=== PATIENT | female | born 1965 | race Caucasian/White ===

== ENCOUNTER 2017-04-08 20:55 | Emergency (ER) | payer BC ==
[~2017-04-08] VITALS: Ht 167.6 cm; Wt 69.4 kg
[~2017-04-08 20:55] MED LIST: IRON PO; LEVO112T2 PO; LORA-741 PO; TYL325X PO
[2017-04-08 20:57] VITALS: Ht 167.6 cm; Wt 69.4 kg
[2017-04-08] MEDS ORDERED: OMEP20CA9 PO (21:17)
[2017-04-08] MEDS ORDERED: SYN88 PO (21:17)
[2017-04-08] MEDS ORDERED: ESTCR PV (21:17)
[2017-04-08] MEDS ORDERED: ACET325T96 PO (21:19)
[2017-04-08] MEDS ORDERED: CLR10 PO (21:21)
[2017-04-08] MEDS ORDERED: ACETAMINOPHEN 500 MG TAB PO STA (21:34)
[2017-04-08] MEDS ORDERED: CEFTRIAXONE SOD INJ 2,000 MG in DEXTROSE 5% 50ML 50 ML IV STA (21:34)
[2017-04-08] MEDS ORDERED: DiphenhydrAMINE HCL 50 MG/ML VIAL IV STA (21:34)
[2017-04-08] MEDS ORDERED: METOCLOPRAMIDE HCL INJ 5 MG/ML 2 ML VIAL IV STA (21:34)
[2017-04-08] MEDS ORDERED: SODIUM CHLORIDE 0.9% 1000ML 1,000 ML IV STA ×2 (21:34)
[2017-04-08] MEDS ORDERED: DEXAMETHASONE SOD INJ 10 MG/ML VIAL IV ONE (21:45)
--- NOTE | 2017-04-08 21:56 | DIAGNOSTIC IMAGING REPORT ---
CHEST ONE VIEW PORTABLE CLINICAL HISTORY: Sepsis. COMPARISON STUDY: Chest radiograph December 30, 2013. FINDINGS: Lung volumes are normal. Lungs are clear. There is no pneumothorax or pleural effusion. Cardiac size is normal. Mediastinal contours are normal. There is no evidence of pulmonary edema. IMPRESSION: No acute cardiopulmonary findings. Electronically signed by: Rambo Jefferson M.D. 04/08/2017 9:55 PM Dictated Date/Time: 04/08/2017 9:54 PM
[2017-04-08 22:18] LABS: BASO % 0.8 %; BASO ABS # 0.05 K/uL (0-0.2); COMPLETE YES; EOS % 1.7 %; HEMATOCRIT 38.9 % (37-47); IG% 0.3 %; LYMPH % 12.5 %; LYMPH ABS # 0.82 K/uL (1.2-3.4); MEAN CELL VOLUME 86.3 fL (80-100); MEAN CORPUSCULAR HEMOGLOBIN 31.3 pg (25-34); MEAN CORPUSCULAR HGB CONC 36.2 g/dl (32-36); MONO % 10.4 %; NEUT % 74.3 %; PLATELET COUNT 164 K/uL (130-400); RED BLOOD COUNT 4.51 M/uL (4.2-5.4); WHITE BLOOD COUNT 6.57 K/uL (4.8-10.8)
[2017-04-08 22:28] LABS: INR 1.1 (0.9-1.1); PARTIAL THROMBOPLASTIN RATIO 1.1; PROTHROMBIN TIME (PATIENT) 11.4 SECONDS (9.0-12.0)
[2017-04-08 22:35] LABS: ALT/SGPT 37 U/L (12-78); BLOOD UREA NITROGEN 11 mg/dl (7-18); BUN/CREATININE RATIO 13.4 (10-20); CARBON DIOXIDE 26 mmol/L (21-32); CHLORIDE 105 mmol/L (98-107); GLUCOSE 104 mg/dl (70-99); POTASSIUM 3.6 mmol/L (3.5-5.1); SODIUM 139 mmol/L (136-145)
[2017-04-08 22:40] LABS: ALB/GLOB RATIO 0.9 (0.9-2); ALKALINE PHOSPHATASE 75 U/L (45-117); AST/SGOT 32 U/L (15-37)
[2017-04-08 22:48] LABS: URINE APPEARANCE CLEAR (CLEAR); URINE BILIRUBIN NEG (NEG); URINE COLOR YELLOW; URINE EPITHELIAL CELL AUTO >30 /lpf (0-5); URINE NITRITE NEG (NEG); URINE PH 7.5 (4.5-7.5); URINE SPECIFIC GRAVITY 1.022 (1.000-1.030); UROBILINOGEN NEG (NEG); ZZUR CULT IF INDIC CLEAN CATCH NO
[2017-04-08 22:52] LABS: CALCIUM 8.9 mg/dl (8.5-10.1)
[2017-04-08 22:54] LABS: MANUAL MICROSCOPIC REQUIRED? NO; REVIEW REQ? NO
[2017-04-08 23:40] LABS: LYME DISEASE AB IGG NEG (NEG); LYME DISEASE AB IGM NEG (NEG)
[2017-04-08 23:45] VITALS: TEMP 37.2
[2017-04-09 00:41] LABS: CSF CHEMISTRY TUBE # 2
[2017-04-09 00:44] LABS: CSF TOTAL PROTEIN 23.8 mg/dl (15.0-45.0)
[2017-04-09 01:14] LABS: CSF APPEARANCE CLEAR; CSF COLOR COLORLESS; CSF XANTHOCHROMIC NO XANTHOCHROMIA
[2017-04-09 01:15] LABS: CSF APPEARANCE CLEAR; CSF COLOR COLORLESS; CSF XANTHOCHROMIC NO XANTHOCHROMIA
[2017-04-09 02:12] VITALS: BP 118/72; PULSE 78; O2SAT 98
--- NOTE | 2017-04-09 05:02 | EMERGENCY ROOM VISIT NOTE ---
History First contact with patient: 21:20 Chief Complaint: BITE Stated Complaint: TICK BITE,CHILLS,STIFF NEC,ACHES,NAUSEA History of Present Illness The patient is a 52 year old female who presents to the Emergency Room with complaints of fever, chills, myalgias, arthralgias, headache, neck stiffness, nausea for the past 2 days. Patient had multiple tick bites in the past. No bull's-eye rash. Patient denies chest pain, dyspnea, abdominal pain, vomiting, diarrhea, sore throat. She is tolerating by mouth fluids and food. Patient believes she has Lyme's disease. Review of Systems See HPI for pertinent positives & negatives. A total of 10 systems reviewed and were otherwise negative. Past Medical/Surgical History Medical Problems: (1) Anemia (2) Anxiety (3) Uterine fibroid Family History No significant family history Social History Smoking Status: Never Smoker Marital Status: Housing Status: lives alone Occupation Status: employed Current/Historical Medications Scheduled Acetaminophen Tab (Tylenol), 650 MG PO PRN UD Estradiol Vaginal (Estrace), 1 APPLN PV UD Levothyroxine Sodium (Synthroid), 88 MCG PO DAILY Scheduled PRN Loratadine (Claritin), 10 MG PO DAILY PRN for ALLERGIC REACTION Lorazepam (Ativan), 0.5 MG PO TID PRN for Anxiety Allergies Coded Allergies: Iron (Verified Allergy, Severe, HIVES, 07/04/14) ONLY IV IRON Physical Exam Vital Signs Date Time Temp Pulse Resp B/P (MAP) Pulse Ox O2 Delivery O2 Flow Rate FiO2 04/09/17 02:12 78 16 118/72 98 04/09/17 00:52 79 16 119/73 99 Room Air 04/08/17 23:45 37.2 87 16 135/85 99 Room Air 04/08/17 22:00 Room Air 04/08/17 20:57 38.4 115 20 157/72 97 Room Air Pain Rating (0-10): 0 Physical Exam VITALS: Vitals are noted on the nurse's note and reviewed by myself. Vital signs febrile. GENERAL: Pleasant female mildly ill-appearing, in no acute distress, nondiaphoretic, well-developed well-nourished. SKIN: The skin was without rashes, erythema, edema, or bruising. There is no tenting of the skin. Capillary reflex less than 2 seconds. HEAD: Normocephalic atraumatic. EARS: External auditory canals clear, tympanic membranes pearly payne without erythema or effusion bilaterally. EYES: Pupils equal round and reactive to light and accommodation. Conjunctivae without injection, sclerae without icterus. Extraocular movements intact. NOSE: Patent, turbinates without inflammation or discharge. No sinus tenderness. MOUTH: Mucous membranes moist. Pharynx without erythema or exudate. Uvula midline. Airway patent. Tongue does not deviate. NECK: Mild neck discomfort with chin to chest. No lymphadenopathy. No thyromegaly. Cervical spine is nontender. No JVD. HEART: Regular rate and rhythm without murmurs gallops or rubs. LUNGS: Clear to auscultation bilaterally without wheezes, rales or rhonchi. No dullness to percussion. No retractions or accessory muscle use. ABDOMEN: Positive bowel sounds x 4. Normal tympanic percussion. Soft, nontender, without masses or organomegaly. Spencer sign negative. No guarding or rebound tenderness. MUSCULOSKELETAL: No muscle atrophy, erythema, or edema noted. NEURO: Patient was alert and oriented to person place and time. Normal sensation to light and sharp touch. No focal neurological deficits. Medical Decision & Procedures Laboratory Results 04/08/17 22:05 Red Blood Count 4.51, Mean Corpuscular Volume 86.3, Mean Corpuscular Hemoglobin 31.3, Mean Corpuscular Hemoglobin Concent 36.2, Mean Platelet Volume 10.0, Neutrophils (%) (Auto) 74.3, Lymphocytes (%) (Auto) 12.5, Monocytes (%) (Auto) 10.4, Eosinophils (%) (Auto) 1.7, Basophils (%) (Auto) 0.8, Neutrophils # (Auto ) 4.89, Lymphocytes # (Auto) 0.82, Monocytes # (Auto) 0.68, Eosinophils # (Auto ) 0.11, Basophils # (Auto) 0.05 04/08/17 22:05 Test 04/08/17 22:05 04/08/17 22:16 04/08/17 22:30 04/09/17 00:05 White Blood Count 6.57 K/uL (4.8-10.8) Red Blood Count 4.51 M/uL (4.2-5.4) Hemoglobin 14.1 g/dL (12.0-16.0) Hematocrit 38.9 % (37-47) Mean Corpuscular Volume 86.3 fL (80-100) Mean Corpuscular Hemoglobin 31.3 pg (25-34) Mean Corpuscular Hemoglobin Concent 36.2 g/dl (32-36) Platelet Count 164 K/uL (130-400) Mean Platelet Volume 10.0 fL (7.4-10.4) Neutrophils (%) (Auto) 74.3 % Lymphocytes (%) (Auto) 12.5 % Monocytes (%) (Auto) 10.4 % Eosinophils (%) (Auto) 1.7 % Basophils (%) (Auto) 0.8 % Neutrophils # (Auto) 4.89 K/uL (1.4-6.5) Lymphocytes # (Auto) 0.82 K/uL (1.2-3.4) Monocytes # (Auto) 0.68 K/uL (0.11-0.59) Eosinophils # (Auto) 0.11 K/uL (0-0.5) Basophils # (Auto) 0.05 K/uL (0-0.2) RDW Standard Deviation 40.7 fL (36.4-46.3) RDW Coefficient of Variation 12.7 % (11.5-14.5) Immature Granulocyte % (Auto) 0.3 % Immature Granulocyte # (Auto) 0.02 K/uL (0.00-0.02) Prothrombin Time 11.4 SECONDS (9.0-12.0) Prothromb Time International Ratio 1.1 (0.9-1.1) Activated Partial Thromboplast Time 29.2 SECONDS (21.0-31.0) Partial Thromboplastin Ratio 1.1 Anion Gap 8.0 mmol/L (3-11) Est Creatinine Clear Calc Drug Dose 78.7 ml/min Estimated GFR () 99.6 Estimated GFR (Non- 86.0 BUN/Creatinine Ratio 13.4 (10-20) Calcium Level 8.9 mg/dl (8.5-10.1) Total Bilirubin 0.5 mg/dl (0.2-1) Aspartate Amino Transf (AST/SGOT) 32 U/L (15-37) Alanine Aminotransferase (ALT/SGPT) 37 U/L (12-78) Alkaline Phosphatase 75 U/L (45-117) Troponin I < 0.015 ng/ml (0-0.045) Total Protein 7.6 gm/dl (6.4-8.2) Albumin 3.6 gm/dl (3.4-5.0) Globulin 4.0 gm/dl (2.5-4.0) Albumin/Globulin Ratio 0.9 (0.9-2) Lyme Disease IgG Antibody NEG (NEG) Lyme Disease IgM Antibody NEG (NEG) Bedside Lactic Acid Venous 1.06 mmol/L (0.90-1.70) Urine Color YELLOW Urine Appearance CLEAR (CLEAR) Urine pH 7.5 (4.5-7.5) Urine Specific [employer] 1.022 (1.000-1.030) Urine Protein NEG (NEG) Urine Glucose (UA) NEG (NEG) Urine Ketones NEG (NEG) Urine Occult Blood TRACE (NEG) Urine Nitrite NEG (NEG) Urine Bilirubin NEG (NEG) Urine Urobilinogen NEG (NEG) Urine Leukocyte Esterase NEG (NEG) Urine WBC (Auto) 1-5 /hpf (0-5) Urine RBC (Auto) 5-10 /hpf (0-4) Urine Hyaline Casts (Auto) 1-5 /lpf (0-5) Urine Epithelial Cells (Auto) >30 /lpf (0-5) Urine Bacteria (Auto) NEG (NEG) CSF Color COLORLESS CSF Appearance CLEAR CSF WBC 0 /uL (0-5) CSF RBC 406 /uL (0) CSF Xanthrochromic NO XANTHOCHROMIA CSF Cell Count Tube # 1 CSF Chemistry Tube # 2 CSF Glucose 63 mg/dl (40-70) CSF Total Protein 23.8 mg/dl (15.0-45.0) Medications Administered Medications (Trade) Dose Ordered Sig/Tami Route Start Time Stop Time Status Last Admin Dose Admin Ceftriaxone Sodium 2000 mg/ Dextrose 70 ml @ 100 mls/hr ONE STAT IV 04/08/17 21:34 04/08/17 22:15 DC 04/08/17 22:05 100 MLS/HR Dexamethasone Sodium Phosphate (Decadron Inj) 10 mg NOW ONCE IV 04/08/17 21:45 04/08/17 21:46 DC 04/08/17 22:05 10 MG Sodium Chloride 1,000 ml @ 999 mls/hr Q1H1M STAT IV 04/08/17 21:34 04/08/17 22:34 DC 04/08/17 22:06 999 MLS/HR Sodium Chloride 1,000 ml @ 125 mls/hr Q8H STAT IV 04/08/17 21:34 04/09/17 02:55 DC 04/09/17 00:21 125 MLS/HR Acetaminophen (Tylenol Tab) 1,000 mg NOW STAT PO 04/08/17 21:34 04/08/17 21:41 DC 04/08/17 22:04 1,000 MG Metoclopramide HCl (Reglan Inj) 10 mg NOW STAT IV 04/08/17 21:34 04/08/17 21:41 DC 04/08/17 22:04 10 MG Diphenhydramine HCl (Benadryl Inj) 25 mg NOW STAT IV 04/08/17 21:34 04/08/17 21:41 DC 04/08/17 22:04 25 MG Procedure Lumbar Puncture Indication: r/o meningitis. Verbal consent was obtained after the risks and benefits were explained, including but not limited to headache, bleeding/clotting, scarring, infection, pain, and bone/joint/nerve damage. At this time, the risks of the procedure are less than the risks of NOT performing the procedure. A time out was taken and the correct patient and site identified. The patient was placed in the sitting position and the back was prepped with betadine and draped in the standard fashion. The L3 intervertebral space was identified, anesthetized locally with 1 % lidocaine without epinephrine, and the spinal needle was inserted through the skin with the bevel parallel to the dural fibers. The 22-gauge needle was carefully advanced into the lumbar cistern and 4 tubes of clear CSF was obtained. The stylet was replaced and the needle was removed. A bandaid was placed and the patient was placed in the supine position. The patient tolerated the procedure well and there were no complications. ED Course Prior records/ancillary studies reviewed. Triage Nursing notes reviewed. Additional history obtained from family. The patient's history was concerning for fever. Differential diagnosis: Etiologies such as viral syndrome, otitis, pharyngitis, pneumonia, influenza, meningitis, urinary tract infection, sepsis, bacteremia, as well as others were entertained. Physical examination: As above ER treatment provided: Rocephin, Decadron, IV fluids On reassessment the patient felt better. Diagnostics interpreted by me: The labs revealed guidelines. CSF with no signs of meningitis. Negative Gram stain Imaging studies: Head CT negative for intracranial bleed per radiology Chest x-ray without pneumonia per radiology This appears to be consistent with fever and headache most likely viral in etiology. No signs of meningitis on laboratory workup. Patient felt much better after being medicated as above. She is tolerating fluids. She was counseled on Lumbar Puncture and on Spinal Headaches. She Is Advised to Follow- Up Family Care in A Few Days or Here in the ER Sooner for High Fevers, Lethargy , Neck Stiffness, Worsening Signs or Symptoms or As Needed. Patient Was Neurovascularly and Neurologically Intact. She Was Well-Appearing.. By the evaluation outlined above emergent etiologies such as otitis, pharyngitis, pneumonia, meningitis, urinary tract infection, sepsis, bacteremia, as well as others were deemed relatively unlikely. The pt informed about the findings as listed above. All questions were answered and pleased with the treatment. Return instructions were outlined and the patient was discharged in stable condition. Referral: The patient was referred back to their primary care physician for follow-up in 2 to 3 days for a recheck of the current condition. Case reviewed with my attending Medical Decision As above Impression Primary Impression: Fever Additional Impression: Headache Departure Information Dispostion Home / Self-Care Condition GOOD Referrals Carole Nam M.D. (PCP) Forms HOME CARE DOCUMENTATION FORM, Work Instructions, Return To Work: 2 days IMPORTANT VISIT INFORMATION Patient Instructions Lumbar Puncture, Fever - [facility] Additional Instructions If you develop a headache when you sit up and it goes away when you lay down that does not go away with Tylenol or Motrin within the next 72 hours you can come here for a blood patch. Acetaminophen(Tylenol) may be used for fever or pain. Use 1000mg every six hours as needed. Avoid using more than 3000mg in a 24 hour period. (AND/OR) Ibuprofen(Motrin, Advil) may be used for fever or pain. Use 600mg every six hours as needed. Take with food. Avoid using more than 2400mg in a 24 hour period. Do not use 2400mg per day for more than three consecutive days without physician direction. Prolonged inappropriate use can lead to stomach upset or ulcers. Afrin nasal spray: 2-3 sprays to each nostril twice daily as needed for congestion. Do not use for more than 3-4 days because it can lead to worsening rebound congestion. Pseudoephedrine(Sudaphed): 30-60mg every 6 hours as needed for nasal congestion. Do not take this with other stimulant products or supplements. Rest and drink plenty of fluids. Controlling your fever with Tylenol and Ibuprofen as above will make you feel better. Wash your hands after nose blowing, sneezing, or coughing. Most germs are spread through contact, therefore improper hygiene may result in your close contacts and loved ones becoming ill just like you. Continue current medications. Return to the ER for severe headache, neck stiffness, chest pain, difficulty breathing, fevers, vomiting, worsening of your condition, or as needed. Follow up with your primary physician this week for a recheck of your current condition. Work Instructions Return To Work: 2 days Problem Qualifiers Primary Impression: Fever Fever type: unspecified Qualified Codes: R50.9 - Fever, unspecified Additional Impression: Headache Headache type: unspecified Headache chronicity pattern: acute headache Intractability: not intractable Qualified Codes: R51 - Headache
--- NOTE | 2017-04-09 06:43 | DIAGNOSTIC IMAGING REPORT ---
CT HEAD WITHOUT CONTRAST (CT) CLINICAL HISTORY: Headache, fever, stiff neck, tic bite. COMPARISON STUDY: No previous studies for comparison. TECHNIQUE: Axial CT of the brain is performed from the vertex to the skull base. IV contrast was not administered for this examination. CT DOSE: 537.48 mGy.cm FINDINGS: No intra or extra-axial mass lesions are visualized. There is no CT evidence of acute cortical infarction. There is no evidence of midline shift. There is no acute hemorrhage. No calvarial fractures are visualized. There is no evidence of pathologic ventricular dilatation. There is no evidence of acute sinusitis IMPRESSION: Normal noncontrast head CT for age Electronically signed by: Dwight Reyna M.D. 04/09/2017 6:42 AM Dictated Date/Time: 04/09/2017 6:41 AM
[2017-04-09] MEDS ORDERED: DXY100 PO (21:24)
[2017-04-12 12:53] LABS: LYME DNA PCR CSF OR SYNOVIAL Not detected (Not Detected); LYME DNA SOURCE CSF
== END 2017-04-09 02:00 | disposition home or self-care (01) ==
LOC: C.EDB 20:56 → C.EDC 04-09 02:00
DX: R50.9 Fever, unspecified (principal); R51 Headache; F41.9 Anxiety disorder, unspecified; Z86.018 Personal history of other benign neoplasm; Z79.899 Other long term (current) drug therapy; Z88.8 Allergy status to other drugs, medicaments and biological substances

== ENCOUNTER 2017-04-09 18:55 | Emergency (ER) | payer BC ==
[~2017-04-09] VITALS: Ht 167.6 cm; Wt 67.8 kg
[~2017-04-09 18:55] MED LIST changes: +ACET325T96 PO; +CLR10 PO; +ESTCR PV; +OMEP20CA9 PO; +SYN88 PO
[2017-04-09 18:58] VITALS: TEMP 36.7; Ht 167.6 cm; Wt 67.8 kg
[2017-04-09] MEDS ORDERED: HYDROmorphone INJ 0.5 MG/0.5 ML SYR IV STA (19:31)
[2017-04-09] MEDS ORDERED: ONDANSETRON INJ 2 MG/ML 2 ML VIAL IV STA (19:31)
[2017-04-09 20:14] LABS: BASO % 0.3 %; BASO ABS # 0.04 K/uL (0-0.2); COMPLETE YES; EOS % 0.1 %; HEMATOCRIT 38.5 % (37-47); IG% 0.2 %; LYMPH % 8.1 %; LYMPH ABS # 1.12 K/uL (1.2-3.4); MEAN CELL VOLUME 87.1 fL (80-100); MEAN CORPUSCULAR HEMOGLOBIN 31.4 pg (25-34); MEAN CORPUSCULAR HGB CONC 36.1 g/dl (32-36); MEAN PLATELET VOLUME 10.2 fL (7.4-10.4); MONO % 11.3 %; PLATELET COUNT 195 K/uL (130-400); RED BLOOD COUNT 4.42 M/uL (4.2-5.4); WHITE BLOOD COUNT 13.85 K/uL (4.8-10.8)
[2017-04-09 20:17] LABS: URINE APPEARANCE CLEAR (CLEAR); URINE BILIRUBIN NEG (NEG); URINE COLOR YELLOW; URINE NITRITE NEG (NEG); URINE PH 7.5 (4.5-7.5); UROBILINOGEN NEG (NEG)
[2017-04-09 20:32] LABS: BUN/CREATININE RATIO 13.8 (10-20); C-REACTIVE PROTEIN 10.2 mg/dl (0-0.29); CALCIUM 8.3 mg/dl (8.5-10.1); CREATININE 0.65 mg/dl (0.60-1.20); POTASSIUM 3.6 mmol/L (3.5-5.1)
[2017-04-09 20:46] LABS: MANUAL MICROSCOPIC REQUIRED? NO; REVIEW REQ? NO
[2017-04-09] MEDS ORDERED: DOXYCYCLINE HYCLATE 100 MG CAP PO ONE (21:15)
[2017-04-09] MEDS ORDERED: DXY100 PO (21:24)
[2017-04-09] MEDS ORDERED: EMPTY 8 DRAM VIAL ONE (21:31)
[2017-04-09 21:39] VITALS: BP 141/82; PULSE 74; O2SAT 100
--- NOTE | 2017-04-10 00:55 | EMERGENCY ROOM VISIT NOTE ---
History Report prepared by Jenn: Tino Subramanian Under the Supervision of: Dr. Luis Lubin M.D. First contact with patient: 19:10 Chief Complaint: OTHER COMPLAINT Stated Complaint: BACK ACHE,HEADACHE,SPINAL TAP YESTERDAY History of Present Illness The patient is a 52 year old female who presents to the Emergency Room with complaints of worsening back pains starting this morning. She reports her discomfort as a 5/10 in severity. The patient states that she went into the clinic earlier this week due to tick bites on her arm, but denies any medication was given to her. She states that she was taking Prilosec two weeks ago for pain but had to come off of it due to nausea.The patient states that she was experiencing generalized aching two days ago and intermittent fevers and chills. She reports that she came to the ED yesterday for her aches, fevers , and chills. She reports that she had a Spinal tap done and was given an antibiotic for meningitis. The patient states that she went to bed last night with extra pillows because of her acid reflux that began a month ago and woke up with back pain and a headache. She reports that throughout the day she felt the pain radiate to her shoulder blades. The patient states that she has been tensing up lately and her neck has been stiff when she moves it side to side. She reports that her headache resolved, but she has been experience jaw pain. The patient admits that she took Tylenol at 0700 and 1330 and states that it helped relieve her pain. She reports that her pain returned later this evening. The patient states that the only position she is comfortable in currently is laying on her right side with her knees to her chest. She admits an allergy to iron and cats but denies any other allergies. The patient denies LOC, diaphoresis, visual changes, chest pain, breathing difficulties, nausea, vomiting, abdominal pain, melena, hematochezia, urinary symptoms, numbness, weakness, lymphadenopathy, rash, or other complaints. Source of History: patient Onset: this morning Position: back Symptom Intensity: 5/10 Timing: worsening Modifying Factors (Relieving): rest, tylenol Associated Symptoms: + fevers, + chills, + headache, + neck pain Review of Systems See HPI for pertinent positives and negatives. A total of ten systems were reviewed and were otherwise negative. Past Medical & Surgical Medical Problems: (1) Anemia (2) Anxiety (3) Uterine fibroid Family History No significant family history Social History Smoking Status: Never Smoker Smokeless Tobacco Use: No Alcohol Use: none Drug Use: none Marital Status: Housing Status: lives alone Occupation Status: employed Current/Historical Medications Scheduled Doxycycline Hyclate (Doxycycline Hyclate), 100 MG PO BID Estradiol Vaginal (Estrace), 1 APPLN PV UD Levothyroxine Sodium (Synthroid), 88 MCG PO DAILY Scheduled PRN Loratadine (Claritin), 10 MG PO DAILY PRN for ALLERGIES Lorazepam (Ativan), 0.5 MG PO TID PRN for Anxiety Allergies Coded Allergies: Iron (Verified Allergy, Severe, HIVES, 07/04/14) ONLY IV IRON Physical Exam Vital Signs Date Time Temp Pulse Resp B/P (MAP) Pulse Ox O2 Delivery O2 Flow Rate FiO2 04/09/17 21:39 74 20 141/82 100 04/09/17 20:56 72 20 137/80 100 Room Air 04/09/17 20:10 70 16 144/85 100 Room Air 04/09/17 18:58 36.7 97 18 138/95 100 Room Air Physical Exam GENERAL: Awake, alert, well-appearing, in no distress HENT: Normocephalic, atraumatic. Oropharynx unremarkable. EYES: Normal conjunctiva. Sclera non-icteric. NECK: Supple. No nuchal rigidity. FROM. No JVD. RESPIRATORY: Clear to auscultation. CARDIAC: Regular rate, normal rhythm. Extremities warm and well perfused. Pulses equal. ABDOMEN: Soft, non-distended. No tenderness to palpation. No rebound or guarding. No masses. RECTAL: Deferred. MUSCULOSKELETAL: Lumbar puncture is normal without infection. Chest examination reveals no tenderness. The back is symmetrical on inspection without obvious abnormality. There is no CVA tenderness to palpation. No joint edema. LOWER EXTREMITIES: Calves are equal size bilaterally and non-tender. No edema. No discoloration. NEURO: Normal sensorium. No sensory or motor deficits noted. Negative straight leg raise. No saddle anesthesia. SKIN: Target appearance to bite site on right axilla. No other rash or jaundice noted. Medical Decision & Procedures Laboratory Results 04/09/17 20:00 Red Blood Count 4.42, Mean Corpuscular Volume 87.1, Mean Corpuscular Hemoglobin 31.4, Mean Corpuscular Hemoglobin Concent 36.1, Mean Platelet Volume 10.2, Neutrophils (%) (Auto) 80.0, Lymphocytes (%) (Auto) 8.1, Monocytes (%) (Auto) 11.3, Eosinophils (%) (Auto) 0.1, Basophils (%) (Auto) 0.3, Neutrophils # (Auto ) 11.09, Lymphocytes # (Auto) 1.12, Monocytes # (Auto) 1.56, Eosinophils # (Auto ) 0.01, Basophils # (Auto) 0.04 04/09/17 20:00 Test 04/09/17 20:00 White Blood Count 13.85 K/uL (4.8-10.8) Red Blood Count 4.42 M/uL (4.2-5.4) Hemoglobin 13.9 g/dL (12.0-16.0) Hematocrit 38.5 % (37-47) Mean Corpuscular Volume 87.1 fL (80-100) Mean Corpuscular Hemoglobin 31.4 pg (25-34) Mean Corpuscular Hemoglobin Concent 36.1 g/dl (32-36) Platelet Count 195 K/uL (130-400) Mean Platelet Volume 10.2 fL (7.4-10.4) Neutrophils (%) (Auto) 80.0 % Lymphocytes (%) (Auto) 8.1 % Monocytes (%) (Auto) 11.3 % Eosinophils (%) (Auto) 0.1 % Basophils (%) (Auto) 0.3 % Neutrophils # (Auto) 11.09 K/uL (1.4-6.5) Lymphocytes # (Auto) 1.12 K/uL (1.2-3.4) Monocytes # (Auto) 1.56 K/uL (0.11-0.59) Eosinophils # (Auto) 0.01 K/uL (0-0.5) Basophils # (Auto) 0.04 K/uL (0-0.2) RDW Standard Deviation 41.4 fL (36.4-46.3) RDW Coefficient of Variation 12.9 % (11.5-14.5) Immature Granulocyte % (Auto) 0.2 % Immature Granulocyte # (Auto) 0.03 K/uL (0.00-0.02) Erythrocyte Sedimentation Rate 15 mm/hr (0-21) Urine Color YELLOW Urine Appearance CLEAR (CLEAR) Urine pH 7.5 (4.5-7.5) Urine Specific [place] 1.010 (1.000-1.030) Urine Protein NEG (NEG) Urine Glucose (UA) NEG (NEG) Urine Ketones NEG (NEG) Urine Occult Blood NEG (NEG) Urine Nitrite NEG (NEG) Urine Bilirubin NEG (NEG) Urine Urobilinogen NEG (NEG) Urine Leukocyte Esterase NEG (NEG) Anion Gap 8.0 mmol/L (3-11) Est Creatinine Clear Calc Drug Dose 96.9 ml/min Estimated GFR () 120.0 Estimated GFR (Non- 103.5 BUN/Creatinine Ratio 13.8 (10-20) Calcium Level 8.3 mg/dl (8.5-10.1) C-Reactive Protein 10.20 mg/dl (0-0.29) Laboratory results reviewed by me Medications Administered Medications (Trade) Dose Ordered Sig/Tami Route Start Time Stop Time Status Last Admin Dose Admin Ondansetron HCl (Zofran Inj) 4 mg NOW STAT IV 04/09/17 19:31 04/09/17 19:35 DC 04/09/17 20:09 4 MG Hydromorphone HCl (Dilaudid Inj) 0.5 mg NOW STAT IV 04/09/17 19:31 04/09/17 19:35 DC 04/09/17 20:10 0.5 MG Doxycycline Hyclate (Vibramycin Cap) 200 mg ONE ONCE PO 04/09/17 21:15 04/09/17 21:16 DC 04/09/17 21:33 200 MG ED Course Medication Reconciliation: I attest that I have personally reviewed the patient' s current medication list Blood pressure screening: Patient was found to have normal blood pressure on screening and does not require follow-up. 1928: The patient was evaluated in room C09. A complete history and physical exam was performed. 1931: Dilaudid Injection 0.5 mg IV, Zofran Injection 4 mg IV, Vibramycin Cap 200 mg PO. 2115: I reevaluated the patient. Discussed results and discharge instructions: She verbalized understanding and agreement. The patient is ready for discharge. Medical Decision Triage Nursing notes reviewed. The patient's presentation and history were concerning for back pain, fever, tick bites, and malaise. Etiologies such as post lumbar puncture headache, complication of lumbar puncture, Lyme disease, electrolyte abnormality, pyelonephritis, lumbago, sciatica, cauda equina, epidural abscess, osteomyelitis, fracture, aortic disease, metastatic disease, infection, renal colic, gastrointestinal, as well as others were entertained. The patient was evaluated. Clinically she was doing very well. She does not describe a history supporting post lumbar puncture headache. She notes that she actually feels very comfortable lying down and her back is really not hurting all that much at this time. She does feel like her muscles are tight and is achy all over. An IV was established. The patient was given Zofran and she had some mild nausea. This worked well. She was given a small dose of Dilaudid and Toradol. On reassessment she felt significantly better. Her CBC revealed a slight leukocytosis. She did receive Decadron yesterday however does have infectious like symptoms. She does not have any meningeal findings and there was no evidence of meningitis on her CSF studies yesterday. The patient clinically looks well at this point. Her CRP is moderately elevated. The rest of her labs are unremarkable. Urinalysis is negative. The patient has a change in the appearance of her red rash at the bite site in the right axilla. The patient and her agree that it has now become more target- like in appearance. Given her symptoms and the appearance of this rash I feel that she is dealing with an acute Lyme infection and discussed treatment with doxycycline. The patient and felt very comfortable with this plan and were completely in agreement. The patient did not want any strong analgesia for at home. I did discuss appropriate dosing of Tylenol and ibuprofen. I did discuss the risks benefits of doxycycline. The patient will follow up closely as an outpatient. If she worsens in any way she will be back.I gave my usual and customary discussion regarding this issue. Return instructions were outlined and the patient was discharged in stable condition. Impression Primary Impression: Acute Lyme disease Additional Impressions: Back pain Myalgia Scribe Attestation The scribe's documentation has been prepared under my direction and personally reviewed by me in its entirety. I confirm that the note above accurately reflects all work, treatment, procedures, and medical decision making performed by me. Departure Information Dispostion Home / Self-Care Prescriptions Doxycycline Hyclate (Doxycycline Hyclate) 100 Mg Cap 100 MG PO BID, #40 CAP Prov: Luis Lubin MD 04/09/17 Referrals Carole Nam M.D. (PCP) Forms HOME CARE DOCUMENTATION FORM, IMPORTANT VISIT INFORMATION, WORK / SCHOOL INSTRUCTIONS Patient Instructions My [facility] Additional Instructions DO NOT drive, drink alcohol, operate machinery, or perform dangerous activities today. You were given medications in the ER that can affect your ability to safely function or operate a vehicle. Doxycycline 100mg: Take one pill twice daily for 21 days . Take with food, but avoid dairy. Avoid prolonged sun exposure since this medication makes you temporarily more susceptible to sunburns. All antibiotics can cause diarrhea. If this occurs and you feel worse or it does not resolve in 1-2 days follow up with your doctor or return to the Emergency Department as this could be signs of serious underlying problems. Any medication can cause an allergic reaction, stop the pills immediately and return to the ER for rash, hives, breathing difficulties, or swelling. Ibuprofen(Motrin, Advil) may be used for fever or pain. Use 600mg every six hours as needed. Take with food. Avoid using more than 2400mg in a 24 hour period. Do not use 2400mg per day for more than three consecutive days without physician direction. Prolonged inappropriate use can lead to stomach upset or ulcers. This medication can be taken if you need to drive, work, or perform activities which may be dangerous when taking narcotic pain medication. (AND/OR) Acetaminophen(Tylenol) may be used for fever or pain. Use 1000mg every six hours as needed. Avoid using more than 4000mg in a 24 hour period. This medication can be taken if you need to drive, work, or perform activities which may be dangerous when taking narcotic pain medication. Rest and avoid heavy lifting until your symptoms resolve and then gradually return to full activity. A good rule of thumb is if it hurts your back to perform a certain activity, then it should be avoided until you are healthy again. A heating pad, warm compresses, or a hot shower may help with tight muscles and can be done several times a day as needed. Continue current medications. Return to the ER immediately for any numbness, tingling, severe pain, loss of control of your bowels or bladder, inability to walk, passing out, chest pain, heart palpitations, or as needed. Follow up with your primary care physician within 3-5 days for a recheck of your current condition. Problem Qualifiers
== END 2017-04-09 21:41 | disposition home or self-care (01) ==
LOC: C.EDB 18:56 → C.EDC 21:41
DX: A69.20 Lyme disease, unspecified (principal); M54.9 Dorsalgia, unspecified; M79.1 Myalgia; Z98.890 Other specified postprocedural states

== ENCOUNTER 2017-04-12 05:20 | Emergency (ER) | payer BC ==
[~2017-04-12] VITALS: Ht 170.2 cm; Wt 67.1 kg
[~2017-04-12 05:20] MED LIST changes: -ACET325T96 PO; +DXY100 PO; -IRON PO; -LEVO112T2 PO; -OMEP20CA9 PO; -TYL325X PO
[2017-04-12 05:22] VITALS: TEMP 36.7; Ht 170.2 cm; Wt 67.1 kg
[2017-04-12] MEDS ORDERED: SODIUM CHLORIDE 0.9% 1000ML 1,000 ML IV STA (05:44)
[2017-04-12] MEDS ORDERED: ONDANSETRON INJ 2 MG/ML 2 ML VIAL IV STA (05:44)
--- NOTE | 2017-04-12 05:53 | EMERGENCY ROOM VISIT NOTE ---
History Report prepared by Jenn: Jewel Astudillo Under the Supervision of: Dr. Jodi Verma D.O. First contact with patient: 05:33 Chief Complaint: HEADACHE Stated Complaint: HEADACHE-S/P SPINAL TAP,LYMES History of Present Illness The patient is a 52 year old female who presents to the Emergency Room with complaints of worsening headache starting 3 days ago. She also reports neck pain. She reports some mild nausea but denies vomiting. The patient was evaluated in the Emergency Room for similar symptoms on April 08 and April 09. She had a lumbar puncture on April 09 which came back negative. She was recently diagnosed with Lyme's disease. She was started on Doxycycline on April 09. She has been taking Tylenol with Codeine without relief. She has also been taking Advil without relief. She has not slept as normal for the past 3 nights due to the severity of the pain. She has some pain improvement with lying down. She has a loss of appetite and a reduced fluid intake. The patient denies fevers, chills, lower extremity swelling, or any other complaints. Source of History: patient Onset: 3 days ago Position: head Timing: worsening Modifying Factors (Relieving): other (Advil, Tylenol with codeine without relief; lying down ) Associated Symptoms: + neck pain, + nausea, No vomiting Review of Systems See HPI for pertinent positives & negatives. A total of 10 systems reviewed and were otherwise negative. Past Medical & Surgical Medical Problems: (1) Anemia (2) Anxiety (3) Uterine fibroid Family History No significant family history Social History Smoking Status: Never Smoker Alcohol Use: none Drug Use: none Marital Status: Housing Status: lives alone Occupation Status: employed Current/Historical Medications Scheduled Doxycycline Hyclate (Doxycycline Hyclate), 100 MG PO BID Estradiol Vaginal (Estrace), 1 APPLN PV UD Levothyroxine Sodium (Synthroid), 88 MCG PO DAILY Scheduled PRN Loratadine (Claritin), 10 MG PO DAILY PRN for ALLERGIES Lorazepam (Ativan), 0.5 MG PO TID PRN for Anxiety Allergies Coded Allergies: Iron (Verified Allergy, Severe, HIVES, 04/12/17) ONLY IV IRON Physical Exam Vital Signs Date Time Temp Pulse Resp B/P (MAP) Pulse Ox O2 Delivery O2 Flow Rate FiO2 04/12/17 06:15 67 04/12/17 06:10 65 18 135/86 100 Room Air 04/12/17 05:22 36.7 95 20 143/98 99 Room Air Physical Exam HEENT: Head - normocephalic and atraumatic Pupils are equal, round, and reactive to light. Extraocular eye muscles are intact, and sclera are anicteric. Nose - moist nasal mucosa without discharge. Mouth - moist buccal mucosa. Oropharynx is nonerythematous and there is no tonsillar exudate or edema noted. Neck: Supple; no JVD, nuchal rigidity, cervical lymphadenopathy. Heart: Regular rate and rhythm. There is a normal S1 and S2 with no murmurs, clicks, or gallops appreciated. Lungs: Clear to auscultation bilaterally with no wheezes, rales, or rhonchi. Abdomen: Soft, completely nontender, nondistended, with good bowel sounds. There are no palpable pulsatile masses or hepatosplenomegaly. There is no guarding, rigidity, or rebound noted. Extremities: No evidence of cyanosis, clubbing, or edema. There are easily palpable peripheral pulses. Skin: warm and dry with good turgor and no rashes. Medical Decision & Procedures Laboratory Results 04/12/17 06:10 Red Blood Count 4.78, Mean Corpuscular Volume 86.0, Mean Corpuscular Hemoglobin 31.4, Mean Corpuscular Hemoglobin Concent 36.5, Mean Platelet Volume 9.8, Neutrophils (%) (Auto) 79.9, Lymphocytes (%) (Auto) 12.6, Monocytes (%) (Auto) 5.5, Eosinophils (%) (Auto) 1.1, Basophils (%) (Auto) 0.4, Neutrophils # (Auto) 8.60, Lymphocytes # (Auto) 1.35, Monocytes # (Auto) 0.59, Eosinophils # (Auto) 0.12, Basophils # (Auto) 0.04 04/12/17 06:10 Test 04/12/17 06:10 White Blood Count 10.75 K/uL (4.8-10.8) Red Blood Count 4.78 M/uL (4.2-5.4) Hemoglobin 15.0 g/dL (12.0-16.0) Hematocrit 41.1 % (37-47) Mean Corpuscular Volume 86.0 fL (80-100) Mean Corpuscular Hemoglobin 31.4 pg (25-34) Mean Corpuscular Hemoglobin Concent 36.5 g/dl (32-36) Platelet Count 242 K/uL (130-400) Mean Platelet Volume 9.8 fL (7.4-10.4) Neutrophils (%) (Auto) 79.9 % Lymphocytes (%) (Auto) 12.6 % Monocytes (%) (Auto) 5.5 % Eosinophils (%) (Auto) 1.1 % Basophils (%) (Auto) 0.4 % Neutrophils # (Auto) 8.60 K/uL (1.4-6.5) Lymphocytes # (Auto) 1.35 K/uL (1.2-3.4) Monocytes # (Auto) 0.59 K/uL (0.11-0.59) Eosinophils # (Auto) 0.12 K/uL (0-0.5) Basophils # (Auto) 0.04 K/uL (0-0.2) RDW Standard Deviation 40.4 fL (36.4-46.3) RDW Coefficient of Variation 12.6 % (11.5-14.5) Immature Granulocyte % (Auto) 0.5 % Immature Granulocyte # (Auto) 0.05 K/uL (0.00-0.02) Anion Gap 8.0 mmol/L (3-11) Est Creatinine Clear Calc Drug Dose 102.3 ml/min Estimated GFR () 120.6 Estimated GFR (Non- 104.1 BUN/Creatinine Ratio 12.8 (10-20) Calcium Level 8.8 mg/dl (8.5-10.1) Total Bilirubin 0.5 mg/dl (0.2-1) Aspartate Amino Transf (AST/SGOT) 33 U/L (15-37) Alanine Aminotransferase (ALT/SGPT) 46 U/L (12-78) Alkaline Phosphatase 74 U/L (45-117) Total Protein 8.1 gm/dl (6.4-8.2) Albumin 3.8 gm/dl (3.4-5.0) Globulin 4.3 gm/dl (2.5-4.0) Albumin/Globulin Ratio 0.9 (0.9-2) Laboratory results per my review. Medications Administered Medications (Trade) Dose Ordered Sig/Tami Route Start Time Stop Time Status Last Admin Dose Admin Sodium Chloride 1,000 ml @ 999 mls/hr Q1H1M STAT IV 04/12/17 05:44 04/12/17 06:44 DC 04/12/17 06:11 999 MLS/HR Ondansetron HCl (Zofran Inj) 4 mg NOW STAT IV 04/12/17 05:44 04/12/17 05:45 DC 04/12/17 06:11 4 MG Procedure Zofran Inj 4 mg IV, Sodium Chloride 1000 ml @ 999 mls/hr IV ED Course 0533: Past medical records reviewed. The patient was evaluated in room B02. A complete history and physical exam was performed. An IV lock was initiated and labs are drawn as above. 0544: Zofran Inj 4 mg IV, Sodium Chloride 1000 ml @ 999 mls/hr IV 0626: I reevaluated the patient whose nausea is better but she continues to have head pain with any movement. 0630: I discussed the patient's case with Dr. Mai, anesthesiologist with [facility]. He is going to have one of his partners come down to perform the blood patch. 0640: I updated the patient. The patient will be discharged once the blood patches performed. Medical Decision The patient presents to the Emergency Room with complaints of headache. Differential diagnosis includes but is not limited to tension headache, dehydration, meningitis, spinal headache. Her labs showed no leucocytosis, stable H&H, normal renal function, normal glucose, normal LFTs. I attest that I have personally reviewed the patient's current medication list. Blood Pressure Screening: Patient was found to have a slightly elevated blood pressure due to circumstances. I do not believe that the patient requires hypertension monitoring. Patient underwent lumbar puncture a couple of days ago which was negative for meningitis. The patient was thought to have Lyme disease and was started on doxycycline. The patient has had a persistent headache and neck pain. The pain has become more severe and seems to be position dependent. I discussed the case with anesthesiology. They will be down to evaluate the patient shortly. The patient has no fever or leukocytosis at this time. Consults Time Called: 0610 Consulting Physician: Dr. Mai, anesthesiologist with [facility] Returned Call: 0615 I discussed the patient's case with Dr. Mai, anesthesiologist with [facility]. He is going to have one of his partners come down to perform the blood patch. Impression Primary Impression: Spinal headache Scribe Attestation The scribe's documentation has been prepared under my direction and personally reviewed by me in its entirety. I confirm that the note above accurately reflects all work, treatment, procedures, and medical decision making performed by me. Departure Information Dispostion Home / Self-Care Referrals Carole Nam M.D. (PCP) Forms HOME CARE DOCUMENTATION FORM, IMPORTANT VISIT INFORMATION Patient Instructions My [facility] Additional Instructions Rest. Keep yourself well-hydrated. Limit strenuous physical activity. Follow instructions from Anesthesia
[2017-04-12 06:20] LABS: BASO % 0.4 %; BASO ABS # 0.04 K/uL (0-0.2); COMPLETE YES; EOS % 1.1 %; HEMATOCRIT 41.1 % (37-47); IG% 0.5 %; LYMPH % 12.6 %; LYMPH ABS # 1.35 K/uL (1.2-3.4); MEAN CORPUSCULAR HEMOGLOBIN 31.4 pg (25-34); MEAN CORPUSCULAR HGB CONC 36.5 g/dl (32-36); MEAN PLATELET VOLUME 9.8 fL (7.4-10.4); MONO % 5.5 %; NEUT % 79.9 %; PLATELET COUNT 242 K/uL (130-400); RED BLOOD COUNT 4.78 M/uL (4.2-5.4); WHITE BLOOD COUNT 10.75 K/uL (4.8-10.8)
[2017-04-12 06:35] LABS: BUN/CREATININE RATIO 12.8 (10-20); CALCIUM 8.8 mg/dl (8.5-10.1); CREATININE 0.64 mg/dl (0.60-1.20); POTASSIUM 3.3 mmol/L (3.5-5.1)
[2017-04-12 06:38] LABS: ALB/GLOB RATIO 0.9 (0.9-2)
--- NOTE | 2017-04-12 08:00 | Anesthesiology Progress Note ---
Anesthesia Progress Note Date of Service Apr 12, 2017. Progress Notes Ms. Gonzalez is a healthy 52 year old female who presented to the ER several days ago with complaints of general malaise with mild ROGERS and notable target lesion on her skin after removing a tick. An LP was done and was interpreted as negative and patient discharged home being empirically treated for possible Lyme (testing negative). She has been taking her doxycycline as prescribed. Patient re-presented to the ER today with complaints of worsening headache that is largely positional in nature. She has been essentially on bedrest as she is unable to sit upright and doing any of her normal daily activities. Lying flat does provide relief. She has tried fluid replacement therapy along with NSAID's and tylenol with codeine without relief. I was consulted by ER physician to discuss possible epidural blood patch. In my discussion with the patient, she did endorse a largely positional headache that started within 24 hours of getting her lumbar puncture. I discussed at length with both the patient and her the risks and benefits of the blood patch to include no change in headache, worsening headache , backpain, bleeding, infection, other neurological disorders and we even discussed that there is a possible risk of introducing lyme into the CSF during this procedure. She understood these risks and wanted to proceed with the patch as she said her headache was too severe to functional normally. After obtaining informed consent and placing it into the chart and confirmed that she was on standard vital sign monitoring with a free flowing IV she was placed in the sitting position and a midline approach was used for the epidural placement. A 17 G Touhy needle was used after L3-L4 was prepped and draped in sterile fashion. 1 ml of 1% lidocaine was used for analgesia of the skin. DEEP was obtained at 5cm to air. Negative heme, negative CSF return on first attempt. A senior patient account representative from the lab obtained a total of 20ml of blood from her RUE in sterile fashion. All 20ml of blood was slowly injected through the touhy needle over several minutes. Patient noted mild back discomfort and started to feel relief of her headache when she was place back in the supine position after the procedure was finished and touhy needle was removed. Patient was instructed to remain supine for 1 hour and then she is to be discharged home per ER attending. Patient was instructed to not do any strenuous physical activity or straining/lifting for several days and also encouraged to drink plenty of fluids along with increase her caffeine intake to help increase CSF production. All questions were answered and patient tolerated the procedure without complication. Alvin Butler MD Staff Anesthesiologist
[2017-04-12 09:16] VITALS: BP 122/90; PULSE 82; O2SAT 99
== END 2017-04-12 09:18 | disposition home or self-care (01) ==
LOC: C.EDB 05:21
DX: G97.1 Other reaction to spinal and lumbar puncture (principal)

== ENCOUNTER → 2017-05-16 | Outpatient (CLI) | payer BC ==
--- NOTE | 2017-05-16 13:06 | MAMMOGRAPHY REPORT ---
BILATERAL DIGITAL SCREENING MAMMOGRAM TOMOSYNTHESIS WITH CAD: 05/16/2017 CLINICAL HISTORY: Routine screening. TECHNIQUE: Breast tomosynthesis in addition to standard 2D mammography was performed. Current study was also evaluated with a Computer Aided Detection (CAD) system. COMPARISON: Comparison is made to exams dated: 03/16/2016 mammogram, 05/05/2014 mammogram, and 4 mammogram - [facility]. BREAST COMPOSITION: There are scattered areas of fibroglandular density in both breasts. FINDINGS: The breast parenchymal pattern is similar to prior exams. No suspicious mass, architectura l distortion or cluster of microcalcifications is seen. IMPRESSION: ACR BI-RADS CATEGORY 1: NEGATIVE There is no mammographic evidence of malignancy. A 1 year screening mammogram is recommended. The pa tient will receive written notification of the results. Approximately 10% of breast cancers are not detected with mammography. A negative mammographic report should not delay biopsy if a clinically suggestive mass is present. Renay Ochoa M.D. ay/:05/16/2017 12:21:17 Medical Education Specialist: Jabari Lee RT(R)(M), [facility] letter sent: Normal 1/2 BI-RADS Code: ACR BI-RADS Category 1: Negative
== END | disposition home or self-care (01) ==
LOC: C.MAMM 11:11
PROVIDERS: ATTEND Obstetrics & Gynecology
DX: Z12.31 Encounter for screening mammogram for malignant neoplasm of breast (principal)